=== PATIENT | female | born 1960 | race Caucasian/White ===

== ENCOUNTER 2017-06-30 10:36 | Emergency (ER) | payer MEDICAID, OTHER ==
[~2017-06-30] VITALS: Ht 157.5 cm; Wt 83.2 kg
[~2017-06-30 10:36] MED LIST: ADVAI500I PO; ALBU8I INH; CLEAPOW6 PO; CYCL5TAB PO; DOXY100T PO; HYDR-3580 PO; IBUP400T20 PO; LASI20TA PO; LISI-363 PO; LORA-392 PO; METO25 PO; METO5TAB PO; NORC7.5T PO; RANI150UDC PO; SERT100 PO; ZOLP10TA3 OR
[2017-06-30 10:40] VITALS: BP 179/78; PULSE 102; RESP 18; TEMP 98.6; O2SAT 98
[2017-06-30 12:11] VITALS: BP 152/82; PULSE 100; RESP 19; TEMP 98.3; O2SAT 100
[2017-06-30 12:36] LABS: AUTOMATED NEUTROPHIL # 2.9 TH/MM3 (1.8-7.7); BASOPHIL % 0.5 % (0.0-2.0); EOSINOPHIL # 0.1 TH/MM3 (0-0.4); HEMATOCRIT 24.9 % (35.0-46.0); HEMO FLAGS DIFF FINAL; LYMPHOCYTE # 1.5 TH/MM3 (1.0-4.8); MEAN CELL VOLUME 87.2 FL (80.0-100.0); MEAN CORPUSCULAR HEMOGLOBIN 29.6 PG (27.0-34.0); MONO % 9.1 % (0.0-8.0); NEUT % 57.4 % (16.0-70.0); PLATELET COUNT 239 TH/MM3 (150-450); RED BLOOD COUNT 2.86 MIL/MM3 (4.00-5.30)
[2017-06-30] MEDS ORDERED: ABIL15TA3 PO (12:43)
[2017-06-30] MEDS ORDERED: CYCL10TA PO (12:43)
[2017-06-30] MEDS ORDERED: AMBI10TA PO (12:43)
[2017-06-30] MEDS ORDERED: ESTR1TAB PO (12:43)
[2017-06-30] MEDS ORDERED: ZANT300T PO (12:43)
[2017-06-30] MEDS ORDERED: PRIL20TA2 (12:43)
[2017-06-30] MEDS ORDERED: BUTA1CAP PO (12:43)
[2017-06-30] MEDS ORDERED: MELA5 PO (12:43)
[2017-06-30] MEDS ORDERED: IBUP1TAB7 PO (12:43)
[2017-06-30] MEDS ORDERED: TRIA0.5O (12:43)
[2017-06-30] MEDS ORDERED: HYDR-2376 PO (12:43)
[2017-06-30] MEDS ORDERED: PROM25TA10 PO (12:43)
[2017-06-30] MEDS ORDERED: FURO20TA PO (12:43)
[2017-06-30] MEDS ORDERED: METO25TA3 PO (12:43)
[2017-06-30] MEDS ORDERED: LISI-515 PO (12:43)
--- NOTE | 2017-06-30 12:48 | PD ---
HPI Chief Complaint: Psychiatric Symptoms Time Seen by Provider: 12:34 Travel History International Travel<30 days: No Contact w/Intl Traveler<30days: No Traveled to known affect area: No History of Present Illness HPI Patient is a 57-year-old female who presents to emergency room for psychiatric evaluation. Reports that she is not sure why she is in the emergency room, reports that her sister made her come to the emergency room for psychiatric evaluation. Patient reports that she does have psychiatric history, patient unsure what her psychiatric history as. Patient reports that she is not suicidal or homicidal, reports concerns that her family members are changing her medications. She reports that she thinks that her daughter gave her prednisone in lieu of her Xanax today, patient unsure why everyone is change when her medications. Patient reports no visual or auditory hallucinations. Denies use of drugs or alcohol. Patient also reports that she has had irregular vaginal bleeding for the past month. She does not have any lightheadedness or dizziness at this time, patient with no abdominal pain, no nausea or vomiting, no other complaints. 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 5 INCHES OF COLON REMOVED) Cholecystectomy: Yes Family History Family Myocardial Infarction: Yes Social History Alcohol Use: Yes (OCC) Tobacco Use: Yes (1PPD) Substance Use: No Allergies-Medications (Allergen,Severity, Reaction): Coded Allergies: diatrizoate meglumine (Unverified Allergy, Severe, HIVES, IV DYE ONLY, ORAL OK., 06/30/17) dipyridamole (Unverified Allergy, Severe, Rash, 06/30/17) gadobenic acid (Unverified Allergy, Severe, HIVES, IV DYE ONLY, ORAL OK., 06/30/17) gadodiamide (Unverified Allergy, Severe, HIVES, IV DYE ONLY, ORAL OK., 06/30/17) gadoteridol (Unverified Allergy, Severe, HIVES, IV DYE ONLY, ORAL OK., 06/30/17) iodine (Unverified Allergy, Severe, Rash, 06/30/17) iodixanol (Unverified Allergy, Severe, HIVES, IV DYE ONLY, ORAL OK., ) iohexol (Unverified Allergy, Severe, HIVES, IV DYE ONLY, ORAL OK., 06/30/17 ) potassium iodide (Unverified Allergy, Severe, Rash, 06/30/17) povidone-iodine (Unverified Allergy, Severe, Rash, 06/30/17) sodium iodide (Unverified Allergy, Severe, Rash, 06/30/17) sodium iodide (Unverified Allergy, Severe, Rash, 06/30/17) Reported Meds & Prescriptions Reported Meds & Active Scripts Active Reported Triamcinolone Acetonide 0.5 % Oint...g. Hydrocodone-Acetaminophen 7.5-300 Mg Tab 1 Tab PO Q6H PRN Melatonin 5 Mg Tab 5 Mg PO HS Ambien (Zolpidem Tartrate) 10 Mg Tab 10 Mg PO HS PRN Ibuprofen 800 Mg Tab 800 Mg PO Q8H PRN Furosemide 20 Mg Tab 20 Mg PO DAILY Flexeril (Cyclobenzaprine HCl) 10 Mg Tab 10 Mg PO TID Phenergan (Promethazine HCl) 25 Mg Tablet 25 Mg PO Q6H PRN Zantac (Ranitidine HCl) 300 Mg Tab 300 Mg PO BID Prilosec (Omeprazole Magnesium) 20 Mg Tab Fioricet (Lmpexqeweb-Uhnvwuzvjkbsl-Gbnofagj) 50-300-40 Mg Cap 1-2 Cap PO Q6H PRN Lisinopril 20 Mg Tab 20 Mg PO DAILY Metoprolol Tartrate 25 Mg Tab 25 Mg PO BID Estradiol 1 Mg Tab 1 Mg PO DAILY Abilify (Aripiprazole) 15 Mg Tab 15 Mg PO HS Review of Systems General / Constitutional: No: Fever Eyes: No: Visual changes HENT: No: Headaches Cardiovascular: No: Chest Pain or Discomfort Respiratory: No: Shortness of Breath Gastrointestinal: No: Abdominal Pain Genitourinary: Positive: Vaginal Bleeding, No: Dysuria Musculoskeletal: No: Pain Skin: No Rash Neurologic: No: Weakness Psychiatric: No: Anxiety, Depression, Suicidal Ideations, Disorder of Thought, Homicidal Ideation Endocrine: No: Polydipsia Hematologic/Lymphatic: No: Easy Bruising Physical Exam Narrative GENERAL: NAD SKIN: Focused skin assessment warm/dry. HEAD: Atraumatic. Normocephalic. EYES: Pupils equal and round. No scleral icterus. No injection or drainage. ENT: No nasal bleeding or discharge. Mucous membranes pink and moist. NECK: Trachea midline. No JVD. CARDIOVASCULAR: Regular rate and rhythm. No murmur appreciated. RESPIRATORY: No accessory muscle use. Clear to auscultation. Breath sounds equal bilaterally. GASTROINTESTINAL: Abdomen soft, non-tender, nondistended. Hepatic and splenic margins not palpable. MUSCULOSKELETAL: No obvious deformities. No clubbing. No cyanosis. No edema. NEUROLOGICAL: Awake and alert. Normal speech. PSYCHIATRIC: Anxious mood and affect, - si/hi Data Data Last Documented VS Vital Signs Date Time Temp Pulse Resp B/P (MAP) Pulse Ox O2 Delivery O2 Flow Rate FiO2 06/30/17 12:14 100 19 06/30/17 12:11 98.3 152/82 (105) 100 Room Air Orders Orders Complete Blood Count With Diff (06/30/17 11:14) Basic Metabolic Panel (Bmp) (06/30/17 11:14) Urinalysis - C+S If Indicated (06/30/17 11:14) Psych Screen (06/30/17 11:14) Drug Screen, Random Urine (06/30/17 11:14) Alcohol (Ethanol) (06/30/17 11:14) Labs Laboratory Tests Test 06/30/17 11:45 06/30/17 12:30 06/30/17 13:30 White Blood Count 5.0 TH/MM3 Red Blood Count 2.86 MIL/MM3 Hemoglobin 8.5 GM/DL Hematocrit 24.9 % Mean Corpuscular Volume 87.2 FL Mean Corpuscular Hemoglobin 29.6 PG Mean Corpuscular Hemoglobin Concent 34.0 % Red Cell Distribution Width 16.0 % Platelet Count 239 TH/MM3 Mean Platelet Volume 7.7 FL Neutrophils (%) (Auto) 57.4 % Lymphocytes (%) (Auto) 31.0 % Monocytes (%) (Auto) 9.1 % Eosinophils (%) (Auto) 2.0 % Basophils (%) (Auto) 0.5 % Neutrophils # (Auto) 2.9 TH/MM3 Lymphocytes # (Auto) 1.5 TH/MM3 Monocytes # (Auto) 0.5 TH/MM3 Eosinophils # (Auto) 0.1 TH/MM3 Basophils # (Auto) 0.0 TH/MM3 CBC Comment DIFF FINAL Differential Comment Blood Urea Nitrogen 14 MG/DL Creatinine 0.82 MG/DL Random Glucose 133 MG/DL Calcium Level 8.7 MG/DL Sodium Level 136 MEQ/L Potassium Level 4.2 MEQ/L Chloride Level 106 MEQ/L Carbon Dioxide Level 20.9 MEQ/L Anion Gap 9 MEQ/L Estimat Glomerular Filtration Rate 72 ML/MIN Ethyl Alcohol Level LESS THAN 3 MG/DL Urine Opiates Screen NEG Urine Barbiturates Screen POS Urine Amphetamines Screen NEG Urine Benzodiazepines Screen NEG Urine Cocaine Screen NEG Urine Cannabinoids Screen NEG Urine Color LIGHT-YELLOW Urine Turbidity CLEAR Urine pH 6.5 Urine Specific [place] 1.004 Urine Protein NEG mg/dL Urine Glucose (UA) NEG mg/dL Urine Ketones NEG mg/dL Urine Occult Blood LARGE Urine Nitrite NEG Urine Bilirubin NEG Urine Urobilinogen LESS THAN 2.0 MG/DL Urine Leukocyte Esterase NEG Urine RBC 12 /hpf Urine WBC 1 /hpf Urine Squamous Epithelial Cells 1 /hpf Urine Bacteria OCC /hpf Urine Mucus FEW /lpf Microscopic Urinalysis Comment CULT NOT INDICATED MDM Medical Decision Making Medical Screen Exam Complete: Yes Emergency Medical Condition: Yes Medical Record Reviewed: Yes Interpretation(s) Vital Signs Date Time Temp Pulse Resp B/P (MAP) Pulse Ox O2 Delivery O2 Flow Rate FiO2 06/30/17 12:14 100 19 06/30/17 12:11 98.3 100 19 152/82 (105) 100 Room Air 06/30/17 10:40 98.6 102 18 179/78 (111) 98 Differential Diagnosis Lo, anxiety reaction, irregular vaginal bleeding Narrative Course 57-year-old female who presents to emergency room for psychiatric evaluation at request of her sister. Patient at this time denies suicidal or homicidal ideations. Patient does report that someone is changes on her medications which is major concern for her. Patient's past medical records were reviewed, patient does have history of anxiety and depression and is taking Zoloft and Ativan when necessary. Discussed with patient need for psychiatric screening labs, once cleared, will have patient screened. Patient also reports that she has had irregular vaginal bleeding for the past one month, patient is a symptomatic at this time. Plan to check hemoglobin level, she understands need to follow-up with head of sales for outpatient workup of irregular vaginal bleeding. CBC & BMP Diagram 06/30/17 11:45 Hemoglobin is 8.5, patient is asymptomatic with no dizziness or lightheadedness at this time, discuss importance with patient of following up with head of sales for workup of her irregular vaginal bleeding. Patient understands that if she does become symptomatic, she must return to the ER immediately. AMA: The risks of leaving against medical advice without further evaluation treatment were discussed with the patient. These risks include cardiac dysfunction, cardiac dysrhythmia, possible heart attack, possible stroke or . The patient indicated understanding of these risks and appeared to have the capacity to make this decision. Diagnosis Primary Impression: Vaginal bleeding problems Patient Instructions: General Instructions Additional Instructions: Please follow-up with your head of sales as soon as possible for workup of your irregular vaginal bleeding Please follow up with your primary care doctor in 2-3 days Return to the ER if symptoms worsen or progress Return to the ER as needed Disposition: 07 AGAINST MEDICAL ADVICE Condition: Serious Yani Hudson DO Jun 30, 2017 12:48
[2017-06-30 12:56] LABS: ANION GAP 9 MEQ/L (5-15); BICARBONATE 20.9 MEQ/L (21.0-32.0); BLOOD UREA NITROGEN 14 MG/DL (7-18); CHLORIDE 106 MEQ/L (98-107); GLOMERULAR FILTRATION RATE 72 ML/MIN (>89); POTASSIUM 4.2 MEQ/L (3.5-5.1); SODIUM (NA) 136 MEQ/L (136-145)
[2017-06-30 12:57] LABS: ALCOHOL LESS THAN 3 MG/DL (0-5)
[2017-06-30 13:47] LABS: BACTERIA, URINE OCC /hpf; BLOOD, URINE LARGE (NEG); COMMENT (UR) CULT NOT INDICATED; CULTURE IF INDICATED CULT NOT INDICATED; GLUCOSE,URINE NEG (NEG); KETONE, URINE NEG (NEG); MUCUS URINE FEW /lpf (OCC); NITRITE,URINE NEG (NEG); PH, URINE 6.5 (5.0-8.5); SQUAMOUS EPITHELIAL CELL URINE 1 /hpf (0-5); URINE COLOR LIGHT-YELLOW (YELLW/STRAW)
== END 2017-06-30 14:31 | disposition left against medical advice (07) ==
LOC: NEPD 10:36
DX: N93.9 Abnormal uterine and vaginal bleeding, unspecified (principal); I11.0 Hypertensive heart disease with heart failure; I50.9 Heart failure, unspecified; F17.200 Nicotine dependence, unspecified, uncomplicated; Z79.899 Other long term (current) drug therapy
CPT/HCPCS: 80048; 80307; 81001; 85025; 99283

== ENCOUNTER 2017-07-02 12:48 | Emergency (ER) | payer MEDICARE, MEDICAID ==
[~2017-07-02] VITALS: Ht 158.8 cm; Wt 79.2 kg
[~2017-07-02 12:48] MED LIST changes: +ABIL15TA3 PO; -ADVAI500I PO; -ALBU8I INH; +AMBI10TA PO; +BUTA1CAP PO; -CLEAPOW6 PO; +CYCL10TA PO; -CYCL5TAB PO; -DOXY100T PO; +ESTR1TAB PO; +FURO20TA PO; +HYDR-2376 PO; -HYDR-3580 PO; +IBUP1TAB7 PO; -IBUP400T20 PO; -LASI20TA PO; -LISI-363 PO; +LISI-515 PO; -LORA-392 PO; +MELA5 PO; -METO25 PO; +METO25TA3 PO; -METO5TAB PO; -NORC7.5T PO; +PRIL20TA2; +PROM25TA10 PO; -RANI150UDC PO; -SERT100 PO; +TRIA0.5O; +ZANT300T PO; -ZOLP10TA3 OR
[2017-07-02 12:50] VITALS: BP 138/60; PULSE 111; RESP 18; TEMP 98.6; O2SAT 98
--- NOTE | 2017-07-02 13:17 | PD ---
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 Patient states that she went through menopause at age 40. Patient states that she has intermittent vaginal bleeding since then. Patient states that the vaginal bleeding is worse for the past week. Patient states that she has been passing blood and blood clots. Patient has been seen by personal physician and multiple visits to different hospital and the emergency room in the area. Patient states that she has several visits to the emergency room at [facility] in [facility]. Patient states that she had ultrasound and CT scan abdomen and pelvis done at [facility] recently. Patient states that radiology results were normal. Patient has been taking estradiol for the past year. Patient was seen in emergency room yesterday and hemoglobin on 3.5 hematocrit 24.9. MCV 87.2. Patient left AMA. Patient states that she has increasing generalized weakness today. Patient states that low abdominal pain cramping pain intermittent pain localized to lower abdomen. Patient denies any pain radiation. Patient states that she had chronic back pain is not new. Patient denies any nausea vomiting diarrhea. Patient denies any fever chills. On a scale of 1-10 the pain is a 5. 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 5 INCHES OF COLON REMOVED) Cholecystectomy: Yes Family History Family Myocardial Infarction: Yes Social History Alcohol Use: Yes (OCC) Tobacco Use: Yes (1PPD) Substance Use: No Allergies-Medications (Allergen,Severity, Reaction): Coded Allergies: diatrizoate meglumine (Unverified Allergy, Severe, HIVES, IV DYE ONLY, ORAL OK., 07/02/17) dipyridamole (Unverified Allergy, Severe, Rash, 07/02/17) gadobenic acid (Unverified Allergy, Severe, HIVES, IV DYE ONLY, ORAL OK., 07/02/17) gadodiamide (Unverified Allergy, Severe, HIVES, IV DYE ONLY, ORAL OK., 07/02/17) gadoteridol (Unverified Allergy, Severe, HIVES, IV DYE ONLY, ORAL OK., 07/02/17) iodine (Unverified Allergy, Severe, Rash, 07/02/17) iodixanol (Unverified Allergy, Severe, HIVES, IV DYE ONLY, ORAL OK., ) iohexol (Unverified Allergy, Severe, HIVES, IV DYE ONLY, ORAL OK., 07/02/17 ) potassium iodide (Unverified Allergy, Severe, Rash, 07/02/17) povidone-iodine (Unverified Allergy, Severe, Rash, 07/02/17) sodium iodide (Unverified Allergy, Severe, Rash, 07/02/17) sodium iodide (Unverified Allergy, Severe, Rash, 07/02/17) Reported Meds & Prescriptions Reported Meds & Active Scripts Active Vistaril (Hydroxyzine Pamoate) 25 Mg Cap 25 Mg PO TID PRN Provera (Medroxyprogesterone Acetate) 10 Mg Tab 10 Mg PO DAILY Start day 16 Reported Lisinopril 20 Mg Tab 20 Mg PO DAILY Triamcinolone Acetonide 0.5 % Oint...g. Hydrocodone-Acetaminophen 7.5-300 Mg Tab 1 Tab PO Q6H PRN Melatonin 5 Mg Tab 5 Mg PO HS Ambien (Zolpidem Tartrate) 10 Mg Tab 10 Mg PO HS PRN Furosemide 20 Mg Tab 20 Mg PO DAILY Flexeril (Cyclobenzaprine HCl) 10 Mg Tab 10 Mg PO TID Phenergan (Promethazine HCl) 25 Mg Tablet 25 Mg PO Q6H PRN Zantac (Ranitidine HCl) 300 Mg Tab 300 Mg PO BID Prilosec (Omeprazole Magnesium) 20 Mg Tab Fioricet (Dooqsnasje-Uirbnjwfwyewo-Mrtnfnrb) 50-300-40 Mg Cap 1-2 Cap PO Q6H PRN Metoprolol Tartrate 25 Mg Tab 25 Mg PO BID Estradiol 1 Mg Tab 1 Mg PO DAILY Abilify (Aripiprazole) 15 Mg Tab 15 Mg PO HS Review of Systems General / Constitutional: No: Fever Eyes: No: Visual changes HENT: No: Headaches Cardiovascular: No: Chest Pain or Discomfort Respiratory: No: Shortness of Breath Gastrointestinal: Positive: Abdominal Pain Genitourinary: Positive: Vaginal Bleeding, No: Dysuria Musculoskeletal: No: Pain Skin: No Rash Neurologic: No: Weakness Psychiatric: No: Depression Endocrine: No: Polydipsia Hematologic/Lymphatic: No: Easy Bruising Physical Exam Narrative GENERAL: Well-nourished, well-developed patient. SKIN: Focused skin assessment warm/dry. HEAD: Normocephalic. EYES: No scleral icterus. No injection or drainage. NECK: Supple, trachea midline. No JVD or lymphadenopathy. CARDIOVASCULAR: Regular rate and rhythm without murmurs, gallops, or rubs. RESPIRATORY: Breath sounds equal bilaterally. No accessory muscle use. GASTROINTESTINAL: Abdomen soft, nondistended. Patient has mild tenderness on palpation lower abdomen. No rebound tenderness. No mass. MUSCULOSKELETAL: No cyanosis, or edema. BACK: Nontender without obvious deformity. No CVA tenderness. Data Data Last Documented VS Vital Signs Date Time Temp Pulse Resp B/P (MAP) Pulse Ox O2 Delivery O2 Flow Rate FiO2 07/02/17 13:49 97 20 104/51 (68) 98 07/02/17 12:50 98.6 Orders Orders Complete Blood Count With Diff (07/02/17 13:08) Comprehensive Metabolic Panel (07/02/17 13:08) Prothrombin Time / Inr (Pt) (07/02/17 13:08) Act Partial Throm Time (Ptt) (07/02/17 13:08) Thyroid Stimulating Hormone (07/02/17 13:08) Iv Access Insert/Monitor (07/02/17 13:08) Ecg Monitoring (07/02/17 13:08) Oximetry (07/02/17 13:08) Type And Screen (07/02/17 13:08) Ed Discharge Order (07/02/17 14:44) Labs Laboratory Tests Test 07/02/17 13:15 White Blood Count 3.7 TH/MM3 Red Blood Count 3.00 MIL/MM3 Hemoglobin 8.0 GM/DL Hematocrit 24.9 % Mean Corpuscular Volume 83.0 FL Mean Corpuscular Hemoglobin 26.6 PG Mean Corpuscular Hemoglobin Concent 32.0 % Red Cell Distribution Width 15.4 % Platelet Count 260 TH/MM3 Mean Platelet Volume 7.5 FL Neutrophils (%) (Auto) 60.5 % Lymphocytes (%) (Auto) 28.6 % Monocytes (%) (Auto) 8.6 % Eosinophils (%) (Auto) 1.6 % Basophils (%) (Auto) 0.7 % Neutrophils # (Auto) 2.2 TH/MM3 Lymphocytes # (Auto) 1.1 TH/MM3 Monocytes # (Auto) 0.3 TH/MM3 Eosinophils # (Auto) 0.1 TH/MM3 Basophils # (Auto) 0.0 TH/MM3 CBC Comment DIFF FINAL Differential Comment Prothrombin Time 10.4 SEC Prothromb Time International Ratio 1.0 RATIO Activated Partial Thromboplast Time 23.1 SEC Blood Urea Nitrogen 10 MG/DL Creatinine 0.87 MG/DL Random Glucose 120 MG/DL Total Protein 7.2 GM/DL Albumin 3.6 GM/DL Calcium Level 8.4 MG/DL Alkaline Phosphatase 63 U/L Aspartate Amino Transf (AST/SGOT) 19 U/L Alanine Aminotransferase (ALT/SGPT) 24 U/L Total Bilirubin 0.3 MG/DL Sodium Level 138 MEQ/L Potassium Level 3.6 MEQ/L Chloride Level 106 MEQ/L Carbon Dioxide Level 23.5 MEQ/L Anion Gap 9 MEQ/L Estimat Glomerular Filtration Rate 68 ML/MIN Thyroid Stimulating Hormone 3rd Gen 0.728 uIU/ML MDM Medical Decision Making Medical Screen Exam Complete: Yes Emergency Medical Condition: Yes Differential Diagnosis Differential diagnosis including postmenopausal bleeding, endocrine problem, anemia, uterine pathology. Narrative Course 57-year-old female with persistent postmenopausal vaginal bleeding. Patient was seen in the emergency room several times recently and had CT scan and ultrasound done recently. Diagnosis Primary Impression: Abnormal uterine bleeding Patient Instructions: General Instructions Additional Instructions: Provera as directed. 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 Return if persistent problem or worse. Med/Other Pt SpecificInfo: Prescription(s) given Scripts Hydroxyzine Pamoate (Vistaril) 25 Mg Cap 25 MG PO TID Y for ANXIETY, #21 CAP 0 Refills Prov: Kevin,Hung MD 07/02/17 Medroxyprogesterone Acetate (Provera) 10 Mg Tab 10 MG PO DAILY for Uterine bleeding, #10 TAB 0 Refills Start day 16 Prov: Riley Brown MD 07/02/17 Disposition: 01 DISCHARGE HOME Condition: Stable Riley Brown MD Jul 02, 2017 13:17
[2017-07-02 13:20] VITALS: O2SAT 96
[2017-07-02] MEDS ORDERED: LISI-515 PO (13:25)
[2017-07-02 13:40] LABS: CHLORIDE 106 MEQ/L (98-107); POTASSIUM 3.6 MEQ/L (3.5-5.1); SODIUM (NA) 138 MEQ/L (136-145)
[2017-07-02 13:43] LABS: ANION GAP 9 MEQ/L (5-15); BICARBONATE 23.5 MEQ/L (21.0-32.0); BLOOD UREA NITROGEN 10 MG/DL (7-18)
[2017-07-02 13:45] LABS: APTT (PATIENT) 23.1 SEC (24.3-30.1); PROTHROMBIN TIME - PATIENT 10.4 SEC (9.8-11.6)
[2017-07-02 13:46] LABS: ALT (GPT) 24 U/L (10-53); AST (GOT) 19 U/L (15-37)
[2017-07-02 13:47] LABS: GLOMERULAR FILTRATION RATE 68 ML/MIN (>89)
[2017-07-02 13:48] LABS: TOTAL BILIRUBIN ADULT 0.3 MG/DL (0.2-1.0)
[2017-07-02 13:49] VITALS: BP 104/51; PULSE 97; RESP 20; O2SAT 98
[2017-07-02 13:49] LABS: ALKALINE PHOSPHATASE 63 U/L (45-117)
[2017-07-02 14:01] LABS: AUTOMATED NEUTROPHIL # 2.2 TH/MM3 (1.8-7.7); BASOPHIL % 0.7 % (0.0-2.0); EOSINOPHIL # 0.1 TH/MM3 (0-0.4); EOSINOPHIL % 1.6 % (0.0-4.0); HEMATOCRIT 24.9 % (35.0-46.0); LYMPH % 28.6 % (9.0-44.0); LYMPHOCYTE # 1.1 TH/MM3 (1.0-4.8); MEAN CORPUSCULAR HEMOGLOBIN 26.6 PG (27.0-34.0); MONO % 8.6 % (0.0-8.0); NEUT % 60.5 % (16.0-70.0); PLATELET COUNT 260 TH/MM3 (150-450); RED CELL DISTRIBUTION WIDTH 15.4 % (11.6-17.2); WHITE BLOOD COUNT 3.7 TH/MM3 (4.0-11.0)
[2017-07-02 14:03] LABS: HEMO FLAGS DIFF FINAL
[2017-07-02] MEDS ORDERED: PROV10TA PO (14:46)
[2017-07-02] MEDS ORDERED: VIST25CA PO (14:47)
== END 2017-07-02 15:13 | disposition home or self-care (01) ==
LOC: PHED 12:48
DX: N93.9 Abnormal uterine and vaginal bleeding, unspecified (principal); E78.00 Pure hypercholesterolemia, unspecified; I11.0 Hypertensive heart disease with heart failure; J44.9 Chronic obstructive pulmonary disease, unspecified; F17.210 Nicotine dependence, cigarettes, uncomplicated; Z86.73 Personal history of transient ischemic attack (TIA), and cerebral infarction without residual deficits
CPT/HCPCS: 80053; 84443; 85025; 85610; 85730; 86850; 86900; 86901; 99284